=== PATIENT | female | born 1995 | race American Indian/Alaskan Native ===

== ENCOUNTER 2017-10-04 10:21 | Outpatient (CLI) | payer MEDICAID, OTHER ==
[2017-10-04 10:49] VITALS: BP 110/58
== END 2017-10-04 11:32 | disposition home or self-care (01) ==
LOC: TRG 10:21
PROVIDERS: ATTEND Obstetrics & Gynecology Gynecology
DX: O99.333 Smoking (tobacco) complicating pregnancy, third trimester (principal); O47.1 False labor at or after 37 completed weeks of gestation; Z3A.37 37 weeks gestation of pregnancy
CPT/HCPCS: 59025

== ENCOUNTER 2017-10-08 20:17 | Inpatient (IN) | payer OTHER ==
[2017-10-08] MEDS ORDERED: PITOCin/NS 20 UNIT/1000ML DRIP 20,000 MILLIUNITS/1,000 ML BAG IV ONE (20:52)
[2017-10-08] MEDS ORDERED: LACTATED RINGERS 1,000 ML ONE (20:55)
[2017-10-08] MEDS ORDERED: STADOL ONE (21:15)
--- NOTE | 2017-10-08 21:37 | History and Physical Report ---
History of Present Illness Date of examination: 10/08/17 Date of admission: 10/08/17 20:36 History of present illness: This is a 21-year-old black female who gives an EDC of 10/21/[address] Chen with plans of delivery and remit time presents to labor and deliver by EMS with complaints of regular contractions initial exam was 8-9 cm with bulging bag patient progressed to have a spontaneous rupture of membranes and delivered quickly. Patient denies any complications during this except that she said she had ultrasound that said the fetus had fluid on his kidney and she was seen yesterday at her OB office. Past History Past Medical History: no pertinent history Past Surgical History: no surgical history - Obstetrical History Expected Date of Delivery: 10/21/17 Actual Gestation: 38 Week(s) 1 Day(s) : 5 Para: 4 Hx # Term Pregnancies: 3 Number of Pregnancies: 1 Spontaneous Abortions: 0 Induced : 0 Number of Living Children: 4 Medications and Allergies Allergies Allergy/AdvReac Type Severity Reaction Status Date / Time No Known Allergies Allergy Verified 12/11/13 03:37 - Vital Signs Vital signs: Vital Signs Pulse BP 83 106/57 10/08/17 21:28 10/08/17 21:28 Temp Pulse Resp BP Pulse Ox 86 118/61 10/08/17 21:33 10/08/17 21:33 - Physical Exam Breasts: Positive: deferred Cardiovascular: Regular rate Lungs: Positive: Normal air movement Abdomen: Positive: normal appearance, soft Genitourinary (Female): Positive: normal external genitalia Vagina: Positive: normal moisture Extremities: Positive: edema - Obstetrical FHR: category 2 Uterine Contraction Pattern: Regular Uterine Contraction Intensity: Strong/Firm Results All other labs normal. Assessment and Plan - Patient Problems (1) with 38 completed weeks gestation Current Visit: Yes Status: Acute Plan to address problem: Patient with rapid delivery. We will obtain records from [facility]. We will continue with normal care. (2) Active labor at term Current Visit: Yes Status: Acute
[2017-10-08] MEDS ORDERED: STADOL IV PRN (21:38)
[2017-10-08] MEDS ORDERED: PHENERGAN PO PRN ×2 (21:38→23:02)
--- NOTE | 2017-10-08 21:47 | Procedure Note ---
OB Delivery Note - Delivery Date of Delivery: 10/08/17 Surgeon: SERAFIN HAYS Estimated blood loss: 300cc - Vaginal Delivery position: OP Intrapartum events: precipitous labor- <3hr Delivery induction: none Delivery monitor: external FHT, external uterine Route of delivery: Delivery placenta: spontaneous Delivery cord: 3 umbilical vessels Episiotomy: none Delivery laceration: none Anesthesia: none Delivery comments: NICU present at delivery due to unknown history - Infant A at 1 minute: 8 at 5 minutes: 9 Gender: Male
[2017-10-08 21:50] LABS: Hematocrit 35.4 % (30.3-42.9); Hemoglobin 11.3 gm/dl (10.1-14.3); Mean Corpuscular HGB Conc 32 % (30-34); Mean Corpuscular Volume 78 fl (79-97); Platelet Count 125 K/mm3 (140-440); Red Blood Count 4.53 M/mm3 (3.65-5.03); Red Cell Distribution Width 15.7 % (13.2-15.2)
[2017-10-08 21:51] LABS: Mean Corpuscular Hemoglobin 25 pg (28-32)
[2017-10-08] MEDS ORDERED: LACTATED RINGERS 1,000 ML IV SCH (22:00)
--- NOTE | 2017-10-08 22:21 | Event Note ---
Date: 10/08/17 Reviewed records + GBS also patient had an EAB will inform nursery
[2017-10-08] MEDS: PITOCin/NS 20 UNIT/1000ML DRIP 20 UNITS/1,000 ML BAG IV SCH ×2 (22:50→23:28)
[2017-10-08] MEDS ORDERED: BENADRYL PO PRN (23:02)
[2017-10-08] MEDS ORDERED: DULCOLAX PR PRN (23:02)
[2017-10-08] MEDS ORDERED: TUCKS PAD TP PRN (23:02)
[2017-10-08] MEDS ORDERED: SODIUM CHLORIDE FLUSH SYRINGE 10 ML IV PRN (23:02)
[2017-10-08] MEDS ORDERED: MILK OF MAGNESIA PO PRN (23:02)
[2017-10-08] MEDS: MOTRIN PO SCH (23:28)
[2017-10-09 00:42] LABS: Hematocrit 32.9 % (30.3-42.9); Hemoglobin 10.4 gm/dl (10.1-14.3)
[2017-10-09] MEDS: TYLENOL PO PRN ×3 (00:59→18:34)
[2017-10-09] MEDS: MOTRIN PO SCH ×2 (05:37→15:20)
--- NOTE | 2017-10-09 08:14 | Progress Note ---
Assessment and Plan patient doing well, no complaints. lochia scant, VSSAF, no symptoms of anemia - post del H&H ordered to be drawn @ 0948. Continue pathway. patient understands infant will need observation d/t untreated GBS. - Patient Problems (1) (normal spontaneous vaginal delivery) Current Visit: Yes Status: Acute (2) GBS (group B Streptococcus carrier), +RV culture, currently Current Visit: Yes Status: Acute Plan to address problem: pt made aware will need 48h monitoring d/t untreated maternal GBS Subjective - Subjective Date of service: 10/09/17 Principal diagnosis: day #1 s/p Patient reports: appetite normal, voiding normally, pain well controlled, ambulating normally, no dizzy ambulation, no nauseated : doing well, bottle feeding Objective - Vital Signs Latest vital signs: Vital Signs Temp Pulse Resp BP BP 10/09/17 06:37 18 10/09/17 05:37 18 10/09/17 01:59 18 10/09/17 00:59 18 10/09/17 00:28 18 10/08/17 23:28 18 10/08/17 23:20 98.4 F 77 20 104/55 10/08/17 22:52 80 117/56 10/08/17 22:36 82 109/66 10/08/17 22:27 98.3 F 20 10/08/17 22:17 76 104/56 10/08/17 22:02 80 110/59 10/08/17 21:47 81 119/57 10/08/17 21:33 86 118/61 10/08/17 21:28 83 106/57 10/08/17 21:27 97.9 F 22 Intake and Output 10/08/17 10/09/17 10/09/17 23:59 07:59 15:59 Intake Total 79.167 480 Output Total 700 Balance 79.167 -220 Intake: IV 79.167 PITOCin/NS 20 UNIT/1000ML 79.167 DRIP 20 units In 1,000 ml @ 125 mls/hr IV DIRECT SHANE Rx#:[id number] Oral 120 Intake, Free Water 360 Output: Urine 700 Void 700 Other: Total, Intake Amount 120 Total, Output Amount 400 # Voids Void 1 Weight 110.223 kg Estimated Blood Loss 300 - Exam Breasts: Present: normal Cardiovascular: Present: Regular rate Lungs: Present: Clear to auscultation, Normal air movement Abdomen: Present: normal appearance, soft Vulva: both: normal Uterus: Present: normal, firm, fundal height at umbilicus Extremities: Present: normal - Labs Labs: Abnormal lab results 10/08/17 Range/Units 21:32 WBC 13.7 H (4.5-11.0) K/mm3 MCV 78 L (79-97) fl MCH 25 L (28-32) pg RDW 15.7 H (13.2-15.2) % Plt Count 125 L (140-440) K/mm3
[2017-10-09] MEDS ORDERED: PRENATAL VITAMIN PO SCH (10:00)
[2017-10-09 10:26] LABS: Hematocrit 32.4 % (30.3-42.9); Hemoglobin 10.4 gm/dl (10.1-14.3)
[2017-10-10] MEDS: MOTRIN PO SCH ×3 (00:21→13:18)
[2017-10-10] MEDS ORDERED: DEPO-PROVERA (CONTRACEPTION) IM NR (08:24)
--- NOTE | 2017-10-10 08:32 | Discharge Summary ---
Providers - Providers Date of Admission: 10/08/17 20:36 Date of discharge: 10/10/17 (pt agrees to d/c ) Attending physician: SERAFIN HAYS 10/08/17 23:02 Consult to Lead [employer] Developer [CONS] Routine Reason For Exam: assistance with , SNS Primary care physician: GRAY LORENZANA Hospitalization Reason for admission: active labor Delivery: Episiotomy: none Laceration: none Incision: normal, dry, intact Other procedures: none complications: none Discharge diagnosis: IUP at term delivered [place] baby: male Hospital course: Walk-in pt arrived in active labor uncomplicated vaginal delivery Pt A&O X 3 No c/o voiced VSS FF below umb Lochia scant Perineum intact Asymptomatic anemia Doing well s/p vaginal delivery P: d/c today with instructions. Pt given info for [facility] to f/u with us and to bring her son for circ. RX provided. Depo @ d/c Pt desires tubal Will sign consent @ visit. Condition at discharge: Good Disposition: DC-01 TO HOME OR SELFCARE - Discharge Diagnoses (1) (normal spontaneous vaginal delivery) Status: Acute Comment: RTO 4 weeks care One week son's circ Plan - Provider Discharge Summary Activity: routine, no sex for 6 weeks, no heavy lifting 4 weeks, no strenuous exercise Diet: routine Instructions: routine Additional instructions: [] Smoking cessation referral if applicable(refer to patient education folder for contact #) [] Refer to [facility] Book[facility] Call your doctor immediately for: * Fever > 100.5 * Heavy vaginal bleeding ( >1 pad per hour) * Severe persistent headache * Shortness of breath * Reddened, hot, painful area to leg or breast * Drainage or odor from incision. * Keep incision clean and dry at all times and follow doctor's instructions regarding bathing/showering - Follow up plan Follow up: GRAY LORENZANA MD [Primary Care Provider] - 7 Days SARAH CROCKETT CNM [Advanced Practice Nurse] - 7 Days (Call [phone] to schedule your visit in 4 weeks and your son's circumcision in one week. Bring the EMLA cream with you to his visit. DO NOT use it at home. Please ask to sign tubal consent at your son's visit. Take medications as prescribed. Call with any concerns. [facility]: [address] [facility] [id number])
[2017-10-10] MEDS: TYLENOL PO PRN (18:14)
[2017-10-10 19:41] VITALS: BP 100/63
== END 2017-10-10 20:30 | disposition home or self-care (01) | DRG 775 ==
LOC: TRG 20:17 → LD 20:36 → TRG 20:36 → OB 23:01
PROVIDERS: ADMIT Obstetrics & Gynecology; ATTEND Obstetrics & Gynecology
PROC: 10E0XZZ Delivery of Products of Conception, External Approach (ICD-10-PCS; principal; 2017-10-10)
DX: O62.3 Precipitate labor (principal); Z37.0 Single live birth; Z3A.38 38 weeks gestation of pregnancy; D64.9 Anemia, unspecified; O90.81 Anemia of the puerperium; O99.824 Streptococcus B carrier state complicating childbirth
CPT/HCPCS: 36415; 85014; 85018; 85027; 86850; 86900; 86901; J0595; J2590; J7120